=== PATIENT | female | born 1965 | race Caucasian/White ===

== ENCOUNTER → 2024-04-20 09:48 | Outpatient (REF) | payer BC, SELFPAY | LOC: HWRAD 09:48 | PROVIDERS: ATTENDING PHYSICIAN Nurse Practitioner Obstetrics & Gynecology; FAMILY PHYSICIAN Family Medicine | DX: N95.0 Postmenopausal bleeding (principal) | CPT/HCPCS: 76830; 76856 ==

== ENCOUNTER 2025-01-16 00:50 | Emergency (ER) | payer BC, SELFPAY ==
[2025-01-16 01:02] VITALS: BP 150/89
[2025-01-16 01:22] LABS: % Basophils 0.3 % (0-2); % Eosinophils 2.6 % (0-6); % Immature Granulocytes 0.5 % (0-0.5); % Lymphocytes 17.7 % (20.5-51.1); % Monocytes 6.5 % (1.7-9.3); % Neutrophils 72.4 % (42.2-75.2); Absolute Eosinophils 0.3 10^3/uL (0-0.7); Absolute Immature Granulocytes 0.1 10^3/uL (0-0.05); Absolute Monocytes 0.8 10^3/uL (0.1-0.6); Absolute Neutrophils 8.3 10^3/uL (1.4-6.5); Hematocrit 42.7 % (37.0-47.0); Hemoglobin 14.5 g/dL (12.0-16.0); Mean Corpuscular Hgb 28.8 pg (27.0-31.0); Mean Corpuscular Volume 84.7 fL (81.0-99.0); Mean Platelet Volume 10.1 fL (7.4-10.4); Nucleated Red Blood Cells % 0 %; Platelet Count 228 10^3/uL (130-400); Red Blood Cell Count 5.04 10^6/uL (4.20-5.40); Red Cell Dist. Width 12.6 % (11.5-14.5); White Blood Cell Count 11.5 10^3/uL (4.8-10.8)
--- NOTE | 2025-01-16 01:31 | ED.GENMED ---
History of Present Illness
General
Chief Complaint: Abdominal Pain
Source: patient
Exam Limitations: none
Time Seen by Provider: 01/16/25 01:09
Nursing documentation reviewed up to this point in time: agreed with
History of Present Illness
History of Present Illness:
This is a 59-year-old woman who complains of 6 to 8-hour history of epigastric abdominal pain. Abdominal pain has been persistent, began sometime before dinner. She was able to eat small amount of chicken Parmesan for dinner without change in
pain. She admits to intermittent nausea but has had no vomiting. Upper abdominal pain radiates to her back. She passed a normal bowel movement around 4 PM. She denies chest pain, no coughing or shortness of breath. Abdominal pain is not worse
with deep breath.
She has had previous cholecystectomy and admits that pain feels somewhat similar to previous episodes of gallbladder attacks.
She took a dose of ibuprofen this evening without relief. She does admit to taking ibuprofen sporadically over the past several days.
She began Ozempic 4 weeks ago. Thus far has been tolerating well without side effects.
Her other daily medication includes lisinopril/HCTZ.
Past History
Past History
ED Past Medical History: HTN and Other (Kidney stones)
ED Past Surgical History: Cholecystectomy, Gynecological (Partial hysterectomy), Orthopedic and Other (Breast reduction)
Social History
Tobacco: Non-smoker
Alcohol: Occasional
Drug: None
Personal:
Living: with family
Employment: Not employed
Family History
Family History: Other (Noncontributory)
Phy Exam
Physical Exam
Physical Exam:
GENERAL: 59-year-old overweight female appears her stated age, awake and alert, pleasant, appears mildly uncomfortable related to pain, easily communicative. Her daughter is accompanying.
EYE: anicteric
NECK: Supple, nontender, no meningismus, no significant adenopathy.
ENT: oral mucosa is moist. No rhinorrhea.
CARDIAC: Regular rate and rhythm. no murmur.
LUNGS: Clear breath sounds bilaterally, no acute respiratory distress, no wheezes/rales/rhonchi
ABDOMEN: Rotund, soft, nondistended, moderate tenderness epigastric region, no r/g, no cvat. normoactive BS.
NEUROLOGICAL: Alert and oriented x3, no focal neuro deficits. Gait is steady.
SKIN: Warm and dry, normal color, skin intact. No rash.
MUSCULOSKELETAL: No C/C/E. peripheral pulses are full and equal b/l. No palpable tenderness.
PSYCH: Normal and appropriate interaction.
Course
Orders/Labs/Results
Orders:
Orders
01/16/25 00:52
EKG [Electrocardiogram (*1)] Urgent
Reason for Study: Abdominal Pain
Other Reason for Exam: upper abd pain radiating to her back
01/16/25 01:01
EKG- Treatment ONCE
01/16/25 01:14
Complete Blood Count/With Diff Urgent
Comprehensive Metabolic Panel Urgent
Lipase Urgent
Troponin I Urgent
01/16/25 01:29
0.9% Sodium Chloride 1000 ml [Nss] 1,000 ml IV BOLUS
Morphine Sulfate 4 mg IV NOW STA
Ondansetron Injectable [Zofran] 4 mg IV NOW STA
Pantoprazole [Protonix IV] 40 mg IV NOW STA
01/16/25 01:40
CT Abd/pelvis W Iv Cont Urgent
Comment:
Reason For Exam: acute upper abd pain; nausea
01/16/25 02:32
HYDROmorphone [Dilaudid] 0.5 mg IV NOW STA
01/16/25 02:52
Ondansetron Injectable [Zofran] 4 mg .ROUTE .STK-MED ONE
01/16/25 02:53
Ondansetron Injectable [Zofran] 4 mg IV NOW STA
Abnormal Lab Results
01/16/25
01:14
WBC 11.5 H 10^3/uL
(4.8-10.8)
Abs Immat Gran (auto) 0.1 H 10^3/uL
(0-0.05)
Absolute Neuts (auto) 8.3 H 10^3/uL
(1.4-6.5)
Absolute Monos (auto) 0.8 H 10^3/uL
(0.1-0.6)
Lymphocytes % 17.7 L %
(20.5-51.1)
Carbon Dioxide 31 H mmol/L
(22-30)
BUN 19 H mg/dl
(7-17)
Glucose 165 H mg/dl
(70-99)
01/16/25 01:14
01/16/25 01:14
Vital Signs
Initial and Last Documented VS:
Initial Vital Signs
Temp Pulse Resp BP Pulse Ox
98.5 F 90 20 150/89 98
01/16/25 01:02 01/16/25 01:02 01/16/25 01:02 01/16/25 01:02 01/16/25 01:02
Last Documented Vital Signs
Temp Pulse Resp BP Pulse Ox
98.5 F 92 19 140/69 95
01/16/25 01:02 01/16/25 03:15 01/16/25 03:15 01/16/25 03:02 01/16/25 03:02
MDM/Problems Addressed
Differential Diagnosis Includes:
Concern for acute gastritis, pancreatitis, common bile duct stone, colitis, diverticulitis, small bowel obstruction.
ACS is another consideration but much less likely.
Patient recently began Ozempic 4 weeks ago; unsure if this is a contributing factor.
Will medicate for pain, nausea as well as given IV dose of Protonix.
EKG is unremarkable showing normal sinus rhythm, normal axis, normal intervals, no acute ST-T wave abnormalities.
Will check labs.
Will plan for CT abdomen pelvis with IV contrast.
Chronic conditions affecting care: HTN and Previous abdomnial surgery
*Radiology
Radiology exam reviewed: radiology read reviewed
*Pulse Oximetry
Patient hypoxic: no
*EKG
Interpreted by ED Provider?: Yes
Interpretation: normal
Comparison EKG: no changes (Unchanged from previous September 2016)
Rate: normal
Rhythm: sinus
[place]: normal axis
Interval: normal interval
QRS Pattern: normal QRS
Ischemia: no ischemia
*Band And Cuff Cutter Interpretation
Rate: normal
Interpretation: normal
Rhythm: sinus
*Critical Care Note
Total Time (30-74mins, 75-104mins- exclusive of procedures): Not Applicable
Update Note
Update Note:
04:20
Patient initially noted no improvement in pain after IV dose of morphine but now much more comfortable after an IV dose of Dilaudid. She did vomit moderate amount of liquid bilious material and after doing so pain has improved as well.
Labs show minimally elevated white blood cell count of 11.5, chemistries are unremarkable. Random glucose 165. Troponin is negative.
CT abdomen pelvis shows fluid within the colon but no obstruction, no bowel wall thickening. No free fluid nor free air. No obstructive uropathy. Normal appendix. Fluid in the colon is nonspecific but concerning for potential early enteritis.
I suspect gastroenteritis versus potential adverse effect from Ozempic.
Recommend clear liquid diet today, slowly advance to bland soft foods as tolerated tomorrow.
A prescription for Zofran has been provided.
Recommend follow-up with PCP this week for recheck.
Return precautions discussed.
ED Attending Note
-
Portions of this chart may have been created with voice recognition software.� Occasional wrong word or��sound alike� substitutions may have occurred due to the inherent limitations of voice recognition software.
Discharge Plan
Departure
Patient Disposition: Home (Routine Discharge)
Date of Disposition: 01/16/25
Time of Disposition: 04:27
Patient with high blood pressure during this ER visit?: No
Condition: Good
Discharge Problem:
Acute upper abdominal pain, Acute gastroenteritis
Instructions: Viral gastroenteritis in adults, Abdominal Pain
Prescriptions:
New
ondansetron 4 mg tablet,disintegrating
4 mg PO QID PRN (Reason: nausea and vomiting) Qty: 20 0RF
No Action
Tums
PRN (Reason: indigestion)
hydrocodone-acetaminophen 1 TABLET tablet
1 tab PO Q4HPRN PRN (Reason: pain) Qty: 10 0RF
Referrals:
Mateo Torres MD [Family Provider] - Call in 1-3 days for appt
Interventions
Interventions:
*Risk Screen - Suicide Last Done: 01/16/25 01:02
*General Assessment Last Done: 01/16/25 02:17
*Neglect/Abuse Screening Last Done: 01/16/25 02:17
*ED- Fall Risk Assessment Last Done: 01/16/25 02:17
*ED COVID-19 Vaccine History Last Done: 01/16/25 02:17
NA-Fflojb-Retteqlwoz Assessment Last Done: 01/16/25 02:26
Discharge Date and Time
Print Language: [place] CITIZEN
[2025-01-16 01:37] LABS: ALT (SGPT) 23 U/L (0-35); AST (SGOT) 18 U/L (14-36); Albumin 4.3 g/dl (3.5-5.0); Alkaline Phosphatase 101 U/L (38-126); Blood Urea Nitrogen 19 mg/dl (7-17); Calcium 9.9 mg/dl (8.4-10.2); Carbon Dioxide 31 mmol/L (22-30); Chloride 102 mmol/L (98-107); Glucose 165 mg/dl (70-99); Lipase 46 U/L (23-300); Potassium 4.1 mmol/L (3.5-5.1); Sodium 140 mmol/L (135-145); Total Bilirubin 0.6 mg/dl (0.2-1.3); Total Protein 7.3 g/dl (6.3-8.2); eGFR > 60.00
[2025-01-16 01:43] VITALS: BP 122/63
[2025-01-16 01:45] LABS: Troponin I < 0.012 ng/ml
[2025-01-16] MEDS: PROTONIX IV 40 MG IV (01:47)
[2025-01-16] MEDS: ZOFRAN 4 MG IV ×2 (01:48→02:54)
[2025-01-16] MEDS: MORPHINE SULFATE 4 MG IV (01:48)
[2025-01-16] MEDS: NSS 1000 IV (01:48)
[2025-01-16 01:56] VITALS: BMI 39.0
[2025-01-16 02:00] VITALS: BP 133/85
[2025-01-16] MEDS: DILAUDID 0.5 MG IV (02:49)
[2025-01-16 03:02] VITALS: BP 140/69
[2025-01-16 04:45] VITALS: BP 118/63
== END 2025-01-16 04:59 | disposition home or self-care (01) ==
LOC: EMR 00:50
PROVIDERS: Emergency Medicine; EMERGENCY PHYSICIAN Emergency Medicine; FAMILY PHYSICIAN Family Medicine
DX: K52.9 Noninfective gastroenteritis and colitis, unspecified (principal); R10.10 Upper abdominal pain, unspecified; I10 Essential (primary) hypertension
CPT/HCPCS: 99285; 96374; 96375 ×3; 96361; 96376; 74177; 80053; 83690; 84484; 85025; 93005; Q9967

== ENCOUNTER 2025-07-16 15:30 | Emergency (ER) | payer BC, SELFPAY ==
[2025-07-16 15:33] VITALS: BP 188/101
[2025-07-16] MEDS: LIDOCAINE 4% PATCH 1 PATCH TOPICAL (16:18)
[2025-07-16] MEDS: TORADOL 30 MG IM (16:18)
[2025-07-16] MEDS: VALIUM 2 MG PO (16:18)
--- NOTE | 2025-07-16 17:26 | ED.GENMED ---
History of Present Illness
General
Chief Complaint: Back Pain
Time Seen by Provider: 07/16/25 15:44
History of Present Illness
History of Present Illness:
60-year-old female with history of diabetes and hypertension presenting to the emergency department for back pain. Patient reports yesterday she has been having low back pain. Denies any significant trauma but reports it started after she took out
the trash. Has had back pain in the past, sciatica. Pain is all lower. Denies numbness or tingling to her extremities. Does note pain with movement and ambulation. Denies weakness. Denies bowel or bladder issues. She had steroids at home so
took 3 tablets of a Medrol Dosepak this morning and ibuprofen yesterday without significant relief. Denies fever. Denies additional medical complaints
Past History
Past History
ED Past Medical History: HTN and Other (Kidney stones)
ED Past Surgical History: Cholecystectomy, Gynecological (Partial hysterectomy), Orthopedic and Other (Breast reduction)
Social History
Tobacco: Non-smoker
Alcohol: Occasional
Drug: None
Personal:
Living: with family
Employment: Not employed
Family History
Family History: Other (Noncontributory)
Phy Exam
Physical Exam
Physical Exam:
General: Well-appearing, no clinical signs of dehydration, nontoxic and in no acute distress
HEENT: protecting airway
Neck: appears supple
CV: Normal heart rate
Resp: No accessory muscle use, no increased work of breathing
Abd: no distension
Extremities: No deformities, no swelling, no erythema. No midline tenderness. Mild tenderness to the lower lumbar musculature of the back without overlying skin changes or erythema
Neuro: alert, no focal neurologic deficit
: deferred
Rectal: deferred
Psych: Normal affect
Skin: Intact
Course
Orders/Labs/Results
Orders:
Orders
07/16/25 16:05
Diazepam [Valium] 2 mg PO NOW STA
Ketorolac [Toradol] 30 mg IM NOW STA
07/16/25 16:06
Lidocaine [Lidocaine 4% Patch] 1 patch TOPICAL ONCE ONE
Apply Lidocaine patch(s) to:: back
07/16/25 17:57
Oxycodone/Acetaminophen [Percocet 5/325] 1 tablet PO NOW STA
Vital Signs
Initial and Last Documented VS:
Initial Vital Signs
Temp Pulse Resp BP Pulse Ox
97.7 F 91 18 188/101 97
07/16/25 15:33 07/16/25 15:33 07/16/25 15:33 07/16/25 15:33 07/16/25 15:33
Last Documented Vital Signs
Temp Pulse Resp BP Pulse Ox
97.7 F 89 16 141/95 98
07/16/25 15:33 07/16/25 17:55 07/16/25 17:55 07/16/25 17:55 07/16/25 17:55
MDM/Problems Addressed
MDM/Problems Addressed:
60-year-old female presenting to the emergency department with low back pain since yesterday. Vital signs on arrival are significant for high blood pressure, however patient notes typical response for pain.
On exam patient is in no acute distress or discomfort. Reassuring examination. Symptoms appear most consistent with musculoskeletal etiology. Do not suspect any concerning etiology to patient's presenting symptoms. Do not suspect any spinal
fracture in the absence of any direct trauma, and no midline spinal tenderness. No fever, systemic symptoms, or midline tenderness, without concern for spinal abscess or infection. No red flag such as bowel or bladder incontinence, focal weakness,
or any sensory deficits on exam, without present concern for spinal compression. Will treat with Toradol, lidocaine patch, Valium and reassess for improvement
18:00 - On reassessment patient does note some improvement in her pain, was able to ambulate to the bathroom. Feel stable for discharge with outpatient supportive therapy. Will provide prescriptions. Otherwise feel stable for discharge. Return
precautions discussed
*Pulse Oximetry
SaO2: 97
Oxygen Mode of Delivery: Room air
Patient hypoxic: no
*Critical Care Note
Total Time (30-74mins, 75-104mins- exclusive of procedures): Not Applicable
ED Attending Note
-
Portions of this chart may have been created with voice recognition software.� Occasional wrong word or��sound alike� substitutions may have occurred due to the inherent limitations of voice recognition software.
Discharge Plan
Departure
Prescriptions:
No Action
Tums
PRN (Reason: indigestion)
hydrocodone-acetaminophen 1 TABLET tablet
1 tab PO Q4HPRN PRN (Reason: pain) Qty: 10 0RF
ondansetron 4 mg tablet,disintegrating
4 mg PO QID PRN (Reason: nausea and vomiting) Qty: 20 0RF
Referrals:
Mateo Torres MD [Family Provider, Family Practice]
Interventions
Interventions:
*Risk Screen - Suicide Last Done: 07/16/25 15:33
*General Assessment Last Done: 07/16/25 15:33
*Neglect/Abuse Screening Last Done: 07/16/25 15:33
*ED- Fall Risk Assessment Last Done: 07/16/25 15:43
*ED COVID-19 Vaccine History Last Done: 07/16/25 15:43
ED-Musculoskeletal Assessment Last Done: 07/16/25 15:43
Discharge Date and Time
Print Language: FIJIAN
[2025-07-16 17:55] VITALS: BP 141/95
[2025-07-16] MEDS: PERCOCET 5/325 1 TABLET PO (18:03)
== END 2025-07-16 18:14 | disposition home or self-care (01) ==
LOC: EMR 15:30
PROVIDERS: EMERGENCY PHYSICIAN Student in an Organized Health Care Education/Training Program; FAMILY PHYSICIAN Family Medicine
DX: M54.40 Lumbago with sciatica, unspecified side (principal); E11.9 Type 2 diabetes mellitus without complications; I10 Essential (primary) hypertension; Z87.442 Personal history of urinary calculi; Z90.49 Acquired absence of other specified parts of digestive tract; Z88.5 Allergy status to narcotic agent
CPT/HCPCS: 99284; 96372

== ENCOUNTER → 2025-09-10 10:07 | Outpatient (REF) | payer OTHER, SELFPAY | LOC: OHS 10:07 | PROVIDERS: ATTENDING PHYSICIAN Nurse Practitioner Family | DX: Z23 Encounter for immunization (principal) | CPT/HCPCS: 36415; 86480; 86735; 86762; 86765; 86787 ==